=== PATIENT | female | born 1960 | race Caucasian/White ===

== ENCOUNTER 2016-11-18 00:53 | Emergency (ER) | payer SELFPAY ==
[~2016-11-18] VITALS: Ht 160 cm; Wt 64.0 kg
[~2016-11-18 00:53] MED LIST: ALBU8I INH; AZIT250T43 PO
[2016-11-18 01:15] VITALS: BP 161/73; PULSE 110; RESP 20; TEMP 98; O2SAT 94
--- NOTE | 2016-11-18 01:46 | PD ---
HPI Chief Complaint: Injury Time Seen by Provider: 01:29 Travel History International Travel<30 days: No Contact w/Intl Traveler<30days: No Traveled to known affect area: No History of Present Illness HPI 56 years old female complains of left foot left ankle pain. Patient states that she twisted her left foot and left ankle 2 weeks ago. Patient states that she had persistent pain and swelling to the area since then. Patient denies any new injury. Patient states that the pain is sharp pain localized to left on the left ankle. Patient denies any pain radiation. Patient states that the pain is worse with weightbearing. PFSH Past Medical History Diminished Hearing: No Gastrointestinal Disorders: Yes (Pt states she has colon problems.) GERD: Yes Genitourinary: Yes (FIBROIDS AND OVARIAN CYSTS) Reproductive: Yes (FIBROID TUMOR) Respiratory: Yes (Bronchitis ) Migraines: Yes Tetanus Vaccination: Unknown ?: Not Menopausal: Yes : 1 Miscarriage: 1 Ovarian Cysts: Yes (H/O, STATES MULTIPLE UTERINE FIBROIDTUMORS AND MD ADVISED HYSTERCT 12/30) Past Surgical History Surgical History: No Previous Surgery Body Medical Devices: SEASONAL ALLERGIES Gynecologic Surgery: Yes (D&C) Social History Alcohol Use: No Tobacco Use: No Substance Use: No Allergies-Medications (Allergen,Severity, Reaction): Coded Allergies: cephalexin (Unverified Allergy, Severe, HIVES, ITCHING, 11/08/16) doxycycline (Unverified Allergy, Severe, "TOXIC" REACTION, 11/08/16) minocycline (Unverified Allergy, Severe, "TOXIC" REACTION, 11/08/16) prednisone (Unverified Allergy, Severe, Rash, 11/08/16) tigecycline (Unverified Allergy, Severe, "TOXIC" REACTION, 11/08/16) Reported Meds & Prescriptions Reported Meds & Active Scripts Active Reported Ventolin Hfa (Albuterol Sulfate) 8 Gm Aero 2 Puff INH Q4 * SHAKE WELL BEFORE USE * 2 PUFFS EVERY 4 TO 6 HOURS NEEDED Azithromycin 250 Mg Tab 250 Mg PO DAILY Review of Systems General / Constitutional: No: Fever Eyes: No: Visual changes HENT: No: Headaches Cardiovascular: No: Chest Pain or Discomfort Respiratory: No: Shortness of Breath Gastrointestinal: No: Abdominal Pain Genitourinary: No: Dysuria Musculoskeletal: Positive: Edema, Pain Skin: No Rash Neurologic: No: Weakness Psychiatric: No: Depression Endocrine: No: Polydipsia Hematologic/Lymphatic: No: Easy Bruising Physical Exam Narrative GENERAL: Well-nourished, well-developed patient. SKIN: Focused skin assessment warm/dry. HEAD: Normocephalic. EYES: No scleral icterus. No injection or drainage. NECK: Supple, trachea midline. No JVD or lymphadenopathy. CARDIOVASCULAR: Regular rate and rhythm without murmurs, gallops, or rubs. RESPIRATORY: Breath sounds equal bilaterally. No accessory muscle use. GASTROINTESTINAL: Abdomen soft, non-tender, nondistended. MUSCULOSKELETAL: No cyanosis, or edema. BACK: Nontender without obvious deformity. No CVA tenderness. Patient has diffuse soft tissue swelling tenderness medial and lateral malleolus area of the ankle and dorsal aspect of the left foot. No redness no heat noted. Full range of motion of the toes. Data Data Last Documented VS Vital Signs Date Time Temp Pulse Resp B/P (MAP) Pulse Ox O2 Delivery O2 Flow Rate FiO2 11/18/16 01:15 98.0 110 20 161/73 (102) 94 Orders Orders Ankle, Complete ([id number]) (11/18/16 01:41) Foot, Complete ([id number]) (11/18/16 01:41) MDM Medical Decision Making Medical Screen Exam Complete: Yes Emergency Medical Condition: Yes Interpretation(s) 2:14 AM. X-ray ankle and foot show no acute bony injury. Soft tissue swelling. Differential Diagnosis Differential diagnosis including sprain, fracture, dislocation. Narrative Course 56 years old female with persistent pain swelling left ankle left foot. Status post injury. Santhosh wrap to the foot and ankle. Diagnosis Primary Impression: Left ankle sprain Qualified Codes: S93.402A - Sprain of unspecified ligament of left ankle, initial encounter Additional Impression: Sprain of left foot Qualified Codes: S93.602A - Unspecified sprain of left foot, initial encounter Patient Instructions: General Instructions Additional Instructions: Take medications as needed for pain. Follow-up with orthopedist. Med/Other Pt SpecificInfo: Prescription(s) given Scripts Meloxicam (Mobic) 15 Mg Tab 15 MG PO DAILY for Pain, #20 TAB 0 Refills Prov: Jc Smart MD 11/18/16 Disposition: 01 DISCHARGE HOME Condition: Stable Jc Smart MD Nov 18, 2016 01:46
--- NOTE | 2016-11-18 02:10 | RADRPT ---
EXAM DATE/TIME: 11/18/2016 01:55 [facility] COMPARISON: No previous studies available for comparison. INDICATIONS : Fell two weeks ago. MEDICAL HISTORY : None. SURGICAL HISTORY : None. ENCOUNTER: Initial ACUITY: 2 weeks PAIN SCORE: 10/10 LOCATION: Left ankle FINDINGS: Three view exam was performed of the left ankle. The bony structures are in normal alignment. No ev idence of fracture or dislocation. The ankle mortise is intact. No radiopaque foreign bodies are se en. Bony mineralization is normal. CONCLUSION: Unremarkable examination of the left ankle other than diffuse soft tissue swelling. Oliver Castaneda MD on November 18, 2016 at 2:08 Board Certified Radiologist. This report was verified electronically.
--- NOTE | 2016-11-18 02:11 | RADRPT ---
EXAM DATE/TIME: 11/18/2016 01:58 [facility] COMPARISON: No previous studies available for comparison. INDICATIONS : Fell two weeks ago. MEDICAL HISTORY : None. SURGICAL HISTORY : None. ENCOUNTER: Initial ACUITY: 2 weeks PAIN SCORE: 10/10 LOCATION: Left foot FINDINGS: Three view examination of the left foot demonstrates no soft tissue swelling, dislocation, or fractur e. The tarsal bones appear intact. The interphalangeal and metatarsophalangeal joints are intact. The calcaneus is intact. Bony mineralization is normal. CONCLUSION: Unremarkable examination of the left foot. Oliver Castaneda MD on November 18, 2016 at 2:09 Board Certified Radiologist. This report was verified electronically.
[2016-11-18] MEDS ORDERED: MOBI15TA PO (02:16)
[2016-11-18 03:30] VITALS: BP 143/70; PULSE 70; RESP 16
== END 2016-11-18 03:28 | disposition home or self-care (01) ==
LOC: NEPE 00:53
DX: S93.402A Sprain of unspecified ligament of left ankle, initial encounter (principal); S93.602A Unspecified sprain of left foot, initial encounter; X50.1XXA Overexertion from prolonged static or awkward postures, initial encounter; K21.9 Gastro-esophageal reflux disease without esophagitis
CPT/HCPCS: 73610; 73630; 99283

== ENCOUNTER 2017-03-13 03:17 | Emergency (ER) | payer SELFPAY ==
[~2017-03-13] VITALS: Ht 157.5 cm; Wt 65.0 kg
[~2017-03-13 03:17] MED LIST changes: +MOBI15TA PO
[2017-03-13 03:18] VITALS: BP 150/78; PULSE 112; RESP 18; TEMP 98.6; O2SAT 95
[2017-03-13] MEDS ORDERED: FUROSEMIDE 40 MG/4 ML VIAL IVP ONE (03:45)
[2017-03-13] MEDS ORDERED: SODIUM CHLORIDE 0.9% FLUSH 10 ML FLUSH IVF PRN (03:45)
[2017-03-13 03:47] VITALS: RESP 16; O2SAT 97
[2017-03-13 04:00] LABS: AUTOMATED NEUTROPHIL # 8.3 TH/MM3 (1.8-7.7); BASOPHIL # 0.1 TH/MM3 (0-0.2); BASOPHIL % 0.6 % (0.0-2.0); EOSINOPHIL # 0.7 TH/MM3 (0-0.4); EOSINOPHIL % 6.3 % (0.0-4.0); HEMATOCRIT 38.9 % (35.0-46.0); HEMOGLOBIN 12.7 GM/DL (11.6-15.3); LYMPH % 16.4 % (9.0-44.0); LYMPHOCYTE # 1.9 TH/MM3 (1.0-4.8); MEAN CELL VOLUME 84.2 FL (80.0-100.0); MEAN CORPUSCULAR HEMOGLOBIN 27.6 PG (27.0-34.0); MEAN CORPUSCULAR HGB CONC 32.7 % (32.0-36.0); MEAN PLATELET VOLUME 7.5 FL (7.0-11.0); MONO % 5.3 % (0.0-8.0); MONOCYTE # 0.6 TH/MM3 (0-0.9); NEUT % 71.4 % (16.0-70.0); PLATELET COUNT 313 TH/MM3 (150-450); RED BLOOD COUNT 4.62 MIL/MM3 (4.00-5.30); RED CELL DISTRIBUTION WIDTH 13.5 % (11.6-17.2); WHITE BLOOD COUNT 11.7 TH/MM3 (4.0-11.0)
--- NOTE | 2017-03-13 04:03 | PD ---
HPI Chief Complaint: Edema Time Seen by Provider: 03:39 Travel History International Travel<30 days: No Contact w/Intl Traveler<30days: No Traveled to known affect area: No History of Present Illness HPI 56 yo F complains of bilateral ankle pain and swelling gradually worsening over past two days of so. Pt has hx of L ankle pain and swelling. Since R ankle now involved and patient cannot ambulate 2/2 pain she called EMS for evaluation. Pt took Lortab earlier today and pain decreased significantly however patient awoke with markedly worsened pain. Pt reports decreased urination over past several days. Pt reports orthopnea and PRETTY. PFSH Past Medical History Diminished Hearing: No Gastrointestinal Disorders: Yes (Pt states she has colon problems.) GERD: Yes Genitourinary: Yes (FIBROIDS AND OVARIAN CYSTS) Reproductive: Yes (FIBROID TUMOR) Respiratory: Yes (Bronchitis ) Migraines: Yes Tetanus Vaccination: Unknown Influenza Vaccination: No Menopausal: Yes : 1 Miscarriage: 1 Ovarian Cysts: Yes (H/O, STATES MULTIPLE UTERINE FIBROIDTUMORS AND MD ADVISED HYSTERCT 12/30) Past Surgical History Body Medical Devices: SEASONAL ALLERGIES Gynecologic Surgery: Yes (D&C) Social History Alcohol Use: No Tobacco Use: No Substance Use: No Allergies-Medications (Allergen,Severity, Reaction): Coded Allergies: cephalexin (Unverified Allergy, Severe, HIVES, ITCHING, 03/13/17) doxycycline (Unverified Allergy, Severe, "TOXIC" REACTION, 03/13/17) minocycline (Unverified Allergy, Severe, "TOXIC" REACTION, 03/13/17) prednisone (Unverified Allergy, Severe, Rash, 03/13/17) tigecycline (Unverified Allergy, Severe, "TOXIC" REACTION, 03/13/17) Reported Meds & Prescriptions Reported Meds & Active Scripts Active No Active Prescriptions or Reported Medications Review of Systems Except as stated in HPI: all other systems reviewed are Neg General / Constitutional: No: Fever Musculoskeletal: Positive: Edema Physical Exam Narrative GENERAL: 56 yo F, WNWD, mild distress SKIN: Warm and dry. HEAD: Atraumatic. Normocephalic. EYES: Pupils equal and round. No scleral icterus. No injection or drainage. ENT: No nasal bleeding or discharge. Mucous membranes pink and moist. NECK: Trachea midline. No JVD. CARDIOVASCULAR: Regular rhythm. Normal rate. RESPIRATORY: Breath sounds intake bilaterally. No tachypnea. GASTROINTESTINAL: Abdomen soft, non-tender, nondistended. Hepatic and splenic margins not palpable. MUSCULOSKELETAL: Bilateral ankle edema, non-pitting, non-tender. 2+ DP bilaterally. No induration, warmth, erythema. NEUROLOGICAL: Awake and alert. No obvious cranial nerve deficits. Motor grossly within normal limits. Five out of 5 muscle strength in the arms and legs. Normal speech. PSYCHIATRIC: Appropriate mood and affect; insight and judgment normal. Data Data Last Documented VS Vital Signs Date Time Temp Pulse Resp B/P (MAP) Pulse Ox O2 Delivery O2 Flow Rate FiO2 03/13/17 03:47 97 Room Air 03/13/17 03:47 16 03/13/17 03:18 98.6 112 VS reviewed Orders Orders Complete Blood Count With Diff (03/13/17 03:44) Comprehensive Metabolic Panel (03/13/17 03:44) B-Type Natriuretic Peptide (03/13/17 03:44) Magnesium (Mg) (03/13/17 03:44) Iv Access Insert/Monitor (03/13/17 03:44) Ecg Monitoring (03/13/17 03:44) Oximetry (03/13/17 03:44) Oxygen Administration (03/13/17 03:44) Chest, Single Ap (03/13/17 03:44) Sodium Chloride 0.9% Flush (Ns Flush) (03/13/17 03:45) Furosemide Inj (Lasix Inj) (03/13/17 03:45) D-Dimer (03/13/17 04:40) Albuterol Hfa Inh (Proair Hfa Inh) (03/13/17 05:15) Us Leg Venous Doppler Bilat (03/13/17 ) Al-Mag Hy-Si 40-40-4 Mg/Ml Liq (Mag-Al P (03/13/17 05:45) Lidocaine 2% Viscous (Xylocaine 2% Visco (03/13/17 05:45) Labs Laboratory Tests Test 03/13/17 03:55 03/13/17 04:45 White Blood Count 11.7 TH/MM3 Red Blood Count 4.62 MIL/MM3 Hemoglobin 12.7 GM/DL Hematocrit 38.9 % Mean Corpuscular Volume 84.2 FL Mean Corpuscular Hemoglobin 27.6 PG Mean Corpuscular Hemoglobin Concent 32.7 % Red Cell Distribution Width 13.5 % Platelet Count 313 TH/MM3 Mean Platelet Volume 7.5 FL Neutrophils (%) (Auto) 71.4 % Lymphocytes (%) (Auto) 16.4 % Monocytes (%) (Auto) 5.3 % Eosinophils (%) (Auto) 6.3 % Basophils (%) (Auto) 0.6 % Neutrophils # (Auto) 8.3 TH/MM3 Lymphocytes # (Auto) 1.9 TH/MM3 Monocytes # (Auto) 0.6 TH/MM3 Eosinophils # (Auto) 0.7 TH/MM3 Basophils # (Auto) 0.1 TH/MM3 CBC Comment DIFF FINAL Differential Comment Blood Urea Nitrogen 6 MG/DL Creatinine 0.59 MG/DL Random Glucose 97 MG/DL Total Protein 7.3 GM/DL Albumin 3.2 GM/DL Calcium Level 8.7 MG/DL Magnesium Level 1.9 MG/DL Alkaline Phosphatase 117 U/L Aspartate Amino Transf (AST/SGOT) 13 U/L Alanine Aminotransferase (ALT/SGPT) 15 U/L Total Bilirubin 0.8 MG/DL Sodium Level 140 MEQ/L Potassium Level 3.6 MEQ/L Chloride Level 106 MEQ/L Carbon Dioxide Level 24.2 MEQ/L Anion Gap 10 MEQ/L Estimat Glomerular Filtration Rate 105 ML/MIN B-Type Natriuretic Peptide 56 PG/ML D-Dimer Quantitative (PE/DVT) 0.90 MG/L [facility] Medical Decision Making Medical Screen Exam Complete: Yes Emergency Medical Condition: Yes Medical Record Reviewed: Yes Differential Diagnosis CHF, pna, venous insufficiency, renal failure, bronchitis, DVT Narrative Course CBC & BMP Diagram 03/13/17 03:55 Total Protein 7.3, Albumin 3.2 L, Calcium Level 8.7, Magnesium Level 1.9, Alkaline Phosphatase 117, Aspartate Amino Transf (AST/SGOT) 13 L, Alanine Aminotransferase (ALT/SGPT) 15, Total Bilirubin 0.8 Last 24 hours Impressions Chest X-Ray 03/13/17 3004 Signed Impressions: Service Date/Time: Monday, March 13, 2017 04:07 - CONCLUSION: Normal examination. Brooks Dunn MD Work up is essentially unremarkable. Pt reiterates her concern for pain and swelling. DDimer added on given low probability for DVT DDimer is 0.9 Lower extremity Doppler study added Patient refused the lower extremity Doppler study on account of the concern for cost. We discussed the necessity of it especially with an elevated d-dimer. The patient stated she wasn't comfortable with it and said she would establish primary care follow-up. Patient understands that by leaving she places herself at increased risk for DVT , PE, potential complication related there and not limited to respiratory arrest , cardiopulmonary arrest and potentially even . Patient has verbalized understanding she can return at any time. The patient is also verbalized intent follow-up with local clinic. Information provided. Diagnosis Primary Impression: Left against medical advice Scripts No Active Prescriptions or Reported Meds Disposition: 07 AGAINST MEDICAL ADVICE Condition: Stable Kwaku White MD Mar 13, 2017 04:03
[2017-03-13 04:21] LABS: ALBUMIN 3.2 GM/DL (3.4-5.0); ALT (GPT) 15 U/L (10-53); AST (GOT) 13 U/L (15-37); BICARBONATE 24.2 MEQ/L (21.0-32.0); BLOOD UREA NITROGEN 6 MG/DL (7-18); CALCIUM 8.7 MG/DL (8.5-10.1); CHLORIDE 106 MEQ/L (98-107); CREATININE 0.59 MG/DL (0.50-1.00); GLOMERULAR FILTRATION RATE 105 ML/MIN (>89); GLUCOSE,RANDOM 97 MG/DL (74-106); MAGNESIUM 1.9 MG/DL (1.5-2.5); SODIUM (NA) 140 MEQ/L (136-145)
[2017-03-13 04:23] LABS: ALKALINE PHOSPHATASE 117 U/L (45-117); TOTAL BILIRUBIN ADULT 0.8 MG/DL (0.2-1.0); TOTAL PROTEIN 7.3 GM/DL (6.4-8.2)
--- NOTE | 2017-03-13 04:37 | RADRPT ---
EXAM DATE/TIME: 03/13/2017 04:07 [facility] COMPARISON: CHEST SINGLE AP, July 05, 2015, 1:25. INDICATIONS : Cough for 2 weeks. MEDICAL HISTORY : None. SURGICAL HISTORY : None. ENCOUNTER: Initial ACUITY: 2 weeks PAIN SCORE: 0/10 LOCATION: Bilateral chest FINDINGS: A single view of the chest demonstrates the lungs to be symmetrically aerated without evidence of mas s, infiltrate or effusion. The cardiomediastinal contours are unremarkable. Osseous structures are intact. CONCLUSION: Normal examination. Brooks Dunn MD on March 13, 2017 at 4:35 Board Certified Radiologist. This report was verified electronically.
[2017-03-13] MEDS ORDERED: ALBUTEROL SULFATE 90 MCG/ACT HFA 8 GM INHALER INH ONE (05:15)
[2017-03-13] MEDS ORDERED: ALUMINUM/MAGNESIUM/SIMETH 30 ML CUP PO ONE (05:45)
[2017-03-13] MEDS ORDERED: LIDOCAINE VISCOUS 2% SOLN 15 ML UDC PO ONE (05:45)
== END 2017-03-13 06:39 | disposition left against medical advice (07) ==
LOC: NEPC 03:17
DX: M25.571 Pain in right ankle and joints of right foot (principal); M25.572 Pain in left ankle and joints of left foot; R06.01 Orthopnea; R05 Cough
CPT/HCPCS: 71010; 80053; 83735; 83880; 85025; 85379; 96374; 99285; J1940

== ENCOUNTER 2017-05-14 19:03 | Inpatient (IN) | payer SELFPAY ==
[~2017-05-14] VITALS: Ht 157.5 cm; Wt 72.9 kg
[2017-05-14 19:31] VITALS: BP 141/68; PULSE 115; RESP 16; TEMP 98.7; O2SAT 95
--- NOTE | 2017-05-14 20:40 | PD ---
HPI Chief Complaint: Psychiatric Symptoms Time Seen by Provider: 20:27 Travel History International Travel<30 days: No Contact w/Intl Traveler<30days: No Traveled to known affect area: No History of Present Illness HPI The patient is a 56 year old female who presents to the [facility] emergency department with a history of being brought in under a Khalil act due to concerns about her ability to care for herself. According to the Khalil act the patient was staying in a residence with trash, urine, and feces all over the furniture and floor. When the patient is questioned regarding what brings her to the emergency department, the patient reports that she "is dehydrated." She reports that her h has been refusing to feed her and also not giving her any liquids other than beer. She reports that she normally does not drink alcohol. She denies having any history of psychiatric disorder. She denies having any suicidal or homicidal ideations. On review of systems otherwise, the patient denies having any recent known fevers, worsening cough or congestion,neck pain, chest pain, shortness of breath, urinary symptoms, or neurologic symptoms. The patient reports that she has had constipation. She reports that she has not been able to move her bowels that she has not been eating. She reports that she has lower abdominal pain associated with this. COUNTS INCLUDE 234 BEDS AT THE [facility] Past Medical History Narrative Medical The patient's past medical history is significant for chronic bronchitis, history of COPD, history of fibroids and ovarian cysts, allergic rhinitis. Hx Anticoagulant Therapy: No Cardiovascular Problems: No Chemotherapy: No Cerebrovascular Accident: No Diabetes: No Diminished Hearing: No Gastrointestinal Disorders: Yes (Pt states she has colon problems.) GERD: Yes Genitourinary: Yes (FIBROIDS AND OVARIAN CYSTS) Reproductive: Yes (FIBROID TUMOR) Respiratory: Yes (CHRONIC BRONCHITIS) Migraines: Yes ?: Not Menopausal: Yes : 1 Miscarriage: 1 Ovarian Cysts: Yes (H/O, STATES MULTIPLE UTERINE FIBROIDTUMORS AND MD ADVISED HYSTERCT 12/30) Past Surgical History Narrative Surgical The patient's past surgical history is significant for dilation and curettage. Body Medical Devices: SEASONAL ALLERGIES Gynecologic Surgery: Yes (D&C) Hysterectomy: No Social History Alcohol Use: No Tobacco Use: No Substance Use: No Allergies-Medications (Allergen,Severity, Reaction): Coded Allergies: cephalexin (Unverified Allergy, Severe, HIVES, ITCHING, 03/13/17) doxycycline (Unverified Allergy, Severe, "TOXIC" REACTION, 03/13/17) minocycline (Unverified Allergy, Severe, "TOXIC" REACTION, 03/13/17) prednisone (Unverified Allergy, Severe, Rash, 03/13/17) tigecycline (Unverified Allergy, Severe, "TOXIC" REACTION, 03/13/17) Reported Meds & Prescriptions Reported Meds & Active Scripts Active No Active Prescriptions or Reported Medications Review of Systems Except as stated in HPI: all other systems reviewed are Neg General / Constitutional: No: Fever Eyes: No: Visual changes HENT: No: Headaches Cardiovascular: No: Chest Pain or Discomfort Respiratory: No: Shortness of Breath Gastrointestinal: Positive: Abdominal Pain, Constipation, Changes in Bowel Habits, No: Nausea, Vomiting, Diarrhea, Hematochezia, Indigestion, Loss of Appetite Genitourinary: No: Dysuria Musculoskeletal: No: Pain Skin: No Rash Neurologic: Positive: Weakness (Generalized weakness), No: Focal Abnormalities , Change in Mentation, Slurred Speech, Sensory Disturbance Psychiatric: Positive: Disorder of Thought, No: Depression, Suicidal Ideations , Homicidal Ideation Endocrine: No: Polydipsia Hematologic/Lymphatic: No: Easy Bruising Physical Exam Narrative General: The patient is a well-developed well-nourished female in no acute distress. Head and Neck exam: Head is normocephalic atraumatic. Eyes: EOMI, pupils are equal round and reactive to light. Nose: Midline septum with pink mucous membranes Mouth: Dentition unremarkable. Tachy mucus membranes. Posterior oropharynx is not erythematous. No tonsillar hypertrophy. Uvula midline. Airway patent. Neck: No palpable lymphadenopathy. No nuchal rigidity. No thyromegaly. Cardiovascular: Sinus tachycardia in the low 100s without murmurs, gallops, or rubs. No pulse deficit to the extremities on simultaneous auscultation and palpation of her radial artery. Lungs: Clear to auscultation bilaterally. No wheezes, rhonchi, or rales. Abdomen: Soft, with tenderness on palpation of bilateral lower quadrants of the abdomen, worse on the left compared to the right. Normal bowel sounds are audible. No tenderness specifically on palpation of her McBurney's point. Negative Abdalla sign. No guarding, rebound, or rigidity. Extremities: No clubbing, cyanosis, or edema. 2+ pulses in all 4 extremities. No calf tenderness on palpation. Back: No costovertebral angle tenderness to palpation. Neurologic Exam: Grossly nonfocal. Skin Exam: No rash noted. Intact skin that is warm and dry. Data Data Last Documented VS Vital Signs Date Time Temp Pulse Resp B/P (MAP) Pulse Ox O2 Delivery O2 Flow Rate FiO2 05/14/17 20:47 96 Room Air 05/14/17 20:42 108 19 05/14/17 19:31 98.7 Orders Orders Electrocardiogram (05/14/17 20:28) Complete Blood Count With Diff (05/14/17 20:28) Comprehensive Metabolic Panel (05/14/17 20:28) Prothrombin Time / Inr (Pt) (05/14/17 20:28) Act Partial Throm Time (Ptt) (05/14/17 20:28) Lipase (05/14/17 20:28) Urinalysis - C+S If Indicated (05/14/17 20:28) Magnesium (Mg) (05/14/17 20:28) Thyroid Stimulating Hormone (05/14/17 20:28) Chest, Single Ap (05/14/17 20:28) Iv Access Insert/Monitor (05/14/17 20:28) Ecg Monitoring (05/14/17 20:28) Oximetry (05/14/17 20:28) Psych Screen (05/14/17 20:28) Drug Screen, Random Urine (05/14/17 20:28) Alcohol (Ethanol) (05/14/17 20:28) Salicylates (Aspirin) (05/14/17 20:28) Tylenol (Acetaminophen) (05/14/17 20:28) Sodium Chlor 0.9% 1000 Ml Inj (Ns 1000 M (05/14/17 21:15) Ct Abd/Pel W Iv Contrast(Rout) (05/14/17 21:18) Urine Culture (05/14/17 21:00) Potassium Chloride (Kcl) (05/14/17 22:30) Sulfamet-Trimeth Ds 800-160 Mg (Bactrim (05/14/17 22:30) Iohexol 350 Inj (Omnipaque 350 Inj) (05/14/17 22:51) Labs Laboratory Tests Test 05/14/17 21:00 05/14/17 21:45 White Blood Count 11.5 TH/MM3 Red Blood Count 5.16 MIL/MM3 Hemoglobin 14.3 GM/DL Hematocrit 42.4 % Mean Corpuscular Volume 82.2 FL Mean Corpuscular Hemoglobin 27.8 PG Mean Corpuscular Hemoglobin Concent 33.8 % Red Cell Distribution Width 14.2 % Platelet Count 320 TH/MM3 Mean Platelet Volume 7.6 FL Neutrophils (%) (Auto) 76.8 % Lymphocytes (%) (Auto) 16.3 % Monocytes (%) (Auto) 5.7 % Eosinophils (%) (Auto) 0.5 % Basophils (%) (Auto) 0.7 % Neutrophils # (Auto) 8.8 TH/MM3 Lymphocytes # (Auto) 1.9 TH/MM3 Monocytes # (Auto) 0.7 TH/MM3 Eosinophils # (Auto) 0.1 TH/MM3 Basophils # (Auto) 0.1 TH/MM3 CBC Comment DIFF FINAL Differential Comment Urine Color YELLOW Urine Turbidity HAZY Urine pH 5.0 Urine Specific [place] 1.014 Urine Protein TRACE mg/dL Urine Glucose (UA) NEG mg/dL Urine Ketones 40 mg/dL Urine Occult Blood TRACE Urine Nitrite NEG Urine Bilirubin NEG Urine Urobilinogen LESS THAN 2.0 MG/DL Urine Leukocyte Esterase LARGE Urine RBC 1 /hpf Urine WBC 44 /hpf Urine Squamous Epithelial Cells 3 /hpf Urine Transitional Epithelial Cells 1 /hpf Urine Amorphous Sediment RARE Urine Bacteria OCC /hpf Urine Hyaline Casts 6 /lpf Urine Mucus FEW /lpf Microscopic Urinalysis Comment CULTURE INDICATED Blood Urea Nitrogen 7 MG/DL Creatinine 0.73 MG/DL Random Glucose 101 MG/DL Total Protein 8.1 GM/DL Albumin 3.9 GM/DL Calcium Level 9.2 MG/DL Magnesium Level 2.1 MG/DL Alkaline Phosphatase 124 U/L Aspartate Amino Transf (AST/SGOT) 23 U/L Alanine Aminotransferase (ALT/SGPT) 21 U/L Total Bilirubin 0.6 MG/DL Sodium Level 137 MEQ/L Potassium Level 3.4 MEQ/L Chloride Level 100 MEQ/L Carbon Dioxide Level 22.3 MEQ/L Anion Gap 15 MEQ/L Estimat Glomerular Filtration Rate 82 ML/MIN Lipase 157 U/L Thyroid Stimulating Hormone 3rd Gen 0.899 uIU/ML Salicylates Level LESS THAN 1.7 MG/DL Urine Opiates Screen NEG Acetaminophen Level LESS THAN 2.0 MCG/ML Urine Barbiturates Screen NEG Urine Amphetamines Screen NEG Urine Benzodiazepines Screen NEG Urine Cocaine Screen NEG Urine Cannabinoids Screen NEG Ethyl Alcohol Level 32 MG/DL Prothrombin Time 10.7 SEC Prothromb Time International Ratio 1.1 RATIO Activated Partial Thromboplast Time 28.4 SEC MDM Medical Decision Making Medical Screen Exam Complete: Yes Emergency Medical Condition: Yes Medical Record Reviewed: Yes Interpretation(s) Last Impressions Chest X-Ray 05/14/172027 Signed Impressions: Service Date/Time: Sunday, May 14, 2017 20:39 - CONCLUSION: Underinflated examination with atelectasis at both lung bases. Otherwise, no acute finding is identified. Brooks Valentin MD Differential Diagnosis Acute psychosis, versus substance-induced mood disorder, versus encephalopathy. Narrative Course During the course of the patient's emergency department visit, the patient's history, examination, and differential diagnosis were reviewed with the patient. The patient was placed on a front desk monitor with oximetry and frequent blood pressure monitoring. The patient had IV access obtained and blood work sent for analysis. The patient had an EKG done on arrival that shows a sinus tach cardia rate of 108, QRS duration is 81 ms, QTC [address] segment elevation, T waves are inverted in V1, V2, V3, V4. The patient was initially provided normal saline 1 L IV fluid bolus The patient's laboratory studies were reviewed and remarkable for a white count of 11.5, hemoglobin 14.3, platelets 320 with 76.8 neutrophils, CMP is remarkable for potassium of 3.4 which was supplemented orally, GFR 82, alk phos 124, lipase 157, TSH 0.899, urine drug screen is negative, salicylate less than 1.7, acetaminophen less than 2, alcohol level 32, urinalysis shows 40 ketones, trace occult blood, large leukocyte esterase, 1 RBC, WBC 44, occasional bacteria , culture indicated. The patient was given Bactrim DS 1 p.o. 1. Radiology studies were reviewed and remarkable for a chest x-ray that shows atelectasis of the bases with underinflation, no other acute abnormality. CT scan of the abdomen and pelvis showed no acute abnormality. The patient has been medically cleared for evaluation by the psychiatric screener and psychiatrist under a Khalil act. Diagnosis Primary Impression: Acute psychosis Additional Impression: Urinary tract infection Qualified Codes: N30.00 - Acute cystitis without hematuria Med/Other Pt SpecificInfo: Prescription(s) given Scripts Sulfamethoxazole-Trimethoprim (Bactrim DS) 800-160 Mg Tab 1 TAB PO BID for Infection, #14 TAB 0 Refills Prov: Yoly Lagos MD 05/14/17 Yoly Lagos MD May 14, 2017 20:40
[2017-05-14 20:42] VITALS: BP 124/61; PULSE 108; RESP 19; O2SAT 96
[2017-05-14 20:47] VITALS: O2SAT 96
--- NOTE | 2017-05-14 20:48 | RADRPT ---
EXAM DATE/TIME: 05/14/2017 20:39 [facility] COMPARISON: CHEST SINGLE AP, March 13, 2017, 4:07. INDICATIONS : Cough MEDICAL HISTORY : None. SURGICAL HISTORY : None. ENCOUNTER: Initial ACUITY: 1 day PAIN SCORE: 0/10 LOCATION: Bilateral chest FINDINGS: Portable AP view of the chest demonstrates a normal-sized cardiac silhouette. Lungs are underinflated with atelectasis at the lung bases. No pleural effusion or pneumothorax is identified. The bones and soft tissues demonstrate no acute finding. CONCLUSION: Underinflated examination with atelectasis at both lung bases. Otherwise, no acute finding is identif ied. Brooks Valentin MD on May 14, 2017 at 20:46 Board Certified Radiologist. This report was verified electronically.
[2017-05-14] MEDS ORDERED: SODIUM CHLOR 0.9% 1000 ML INJ 1,000 ML IV ONE (21:15)
[2017-05-14 21:21] LABS: AUTOMATED NEUTROPHIL # 8.8 TH/MM3 (1.8-7.7); BASOPHIL # 0.1 TH/MM3 (0-0.2); BASOPHIL % 0.7 % (0.0-2.0); EOSINOPHIL # 0.1 TH/MM3 (0-0.4); EOSINOPHIL % 0.5 % (0.0-4.0); HEMATOCRIT 42.4 % (35.0-46.0); HEMOGLOBIN 14.3 GM/DL (11.6-15.3); LYMPH % 16.3 % (9.0-44.0); LYMPHOCYTE # 1.9 TH/MM3 (1.0-4.8); MEAN CELL VOLUME 82.2 FL (80.0-100.0); MEAN CORPUSCULAR HEMOGLOBIN 27.8 PG (27.0-34.0); MEAN CORPUSCULAR HGB CONC 33.8 % (32.0-36.0); MEAN PLATELET VOLUME 7.6 FL (7.0-11.0); MONO % 5.7 % (0.0-8.0); MONOCYTE # 0.7 TH/MM3 (0-0.9); NEUT % 76.8 % (16.0-70.0); PLATELET COUNT 320 TH/MM3 (150-450); RED BLOOD COUNT 5.16 MIL/MM3 (4.00-5.30); RED CELL DISTRIBUTION WIDTH 14.2 % (11.6-17.2); WHITE BLOOD COUNT 11.5 TH/MM3 (4.0-11.0)
[2017-05-14 21:50] LABS: ALT (GPT) 21 U/L (10-53)
[2017-05-14 21:52] LABS: AMORPHOUS SEDIMENT, URINE RARE; BACTERIA, URINE OCC /hpf; BILIRUBIN, URINE NEG (NEG); BLOOD, URINE TRACE (NEG); GLUCOSE,URINE NEG (NEG); HYALINE CAST, URINE 6 /lpf (RARE); KETONE, URINE 40 mg/dL (NEG); MUCUS URINE FEW /lpf (OCC); NITRITE,URINE NEG (NEG); SQUAMOUS EPITHELIAL CELL URINE 3 /hpf (0-5); TRANSITIONAL EPI CELLS, URINE 1 /hpf; URINE COLOR YELLOW (YELLW/STRAW); URINE LEUKOCYTE ESTERASE LARGE (NEG)
[2017-05-14 21:54] LABS: ACETAMINOPHEN LESS THAN 2.0 MCG/ML (10.0-30.0); ALBUMIN 3.9 GM/DL (3.4-5.0); ALKALINE PHOSPHATASE 124 U/L (45-117); AST (GOT) 23 U/L (15-37); BICARBONATE 22.3 MEQ/L (21.0-32.0); BLOOD UREA NITROGEN 7 MG/DL (7-18); CALCIUM 9.2 MG/DL (8.5-10.1); CHLORIDE 100 MEQ/L (98-107); CREATININE 0.73 MG/DL (0.50-1.00); GLOMERULAR FILTRATION RATE 82 ML/MIN (>89); GLUCOSE,RANDOM 101 MG/DL (74-106); MAGNESIUM 2.1 MG/DL (1.5-2.5); SODIUM (NA) 137 MEQ/L (136-145); TOTAL BILIRUBIN ADULT 0.6 MG/DL (0.2-1.0); TOTAL PROTEIN 8.1 GM/DL (6.4-8.2)
[2017-05-14] MEDS ORDERED: POTASSIUM CHLORIDE 20 MEQ CONTROLLED RELEASE TAB PO ONE (22:30)
[2017-05-14] MEDS ORDERED: SULFAMETHOXAZOLE-TRIMETHOPRIM DS 800-160 MG TAB PO ONE (22:30)
[2017-05-14 22:38] LABS: INTERNATIONAL NORMALIZED RATIO 1.1 RATIO; PROTHROMBIN TIME - PATIENT 10.7 SEC (9.8-11.6)
[2017-05-14] MEDS ORDERED: IOHEXOL 350 MG/ML 10 ML VIAL (for RAD DIAG) IVCONTRAST ONE (22:51)
--- NOTE | 2017-05-14 23:03 | RADRPT ---
EXAM DATE/TIME: 05/14/2017 22:48 [facility] COMPARISON: No previous studies available for comparison. INDICATIONS : Abdominal pain and nausea; possible diverticulitis. IV CONTRAST: 97 cc Omnipaque 350 (iohexol) IV ORAL CONTRAST: No oral contrast ingested. RADIATION DOSE: 15.71 CTDIvol (mGy) MEDICAL HISTORY : Chronic bronchitis, uterine fibroids, ovarian cysts SURGICAL HISTORY : None. ENCOUNTER: Initial ACUITY: 1 day PAIN SCALE: 6/10 LOCATION: abdomen TECHNIQUE: Volumetric scanning of the abdomen and pelvis was performed. Using automated exposure control and ad justment of the mA and/or kV according to patient size, radiation dose was kept as low as reasonably achievable to obtain optimal diagnostic quality images. DICOM format image data is available electro nically for review and comparison. FINDINGS: LOWER LUNGS: The visualized lower lungs are clear. LIVER: Homogeneous density without lesion. There is no dilation of the biliary tree. No calcified gallston es. SPLEEN: Normal size without lesion. PANCREAS: Within normal limits. KIDNEYS: Normal in size and shape. There is no mass, stone or hydronephrosis. There is an 11 mm low-density l esion in the right mid kidney with density measurements consistent with a cyst. ADRENAL GLANDS: Within normal limits. VASCULAR: There is no aortic aneurysm. There is mild atherosclerotic disease. BOWEL/MESENTERY: The stomach, small bowel, and colon demonstrate no acute abnormality. There is no free intraperitone al air or fluid. Mild sigmoid diverticulosis is present. There is a small hiatal hernia. ABDOMINAL WALL: Within normal limits. RETROPERITONEUM: There is no lymphadenopathy. BLADDER: No wall thickening or mass. REPRODUCTIVE: There is a 15 mm cyst in the right ovary. Uterus contains a hypoenhancing area in the anterior fundus measuring 18 mm. INGUINAL: There is no lymphadenopathy or hernia. MUSCULOSKELETAL: There mild degenerative changes of the lumbar spine. CONCLUSION: 1. No acute finding is identified within the abdomen or pelvis. There are no imaging findings to noelle anahy acute diverticulitis. 2. There is a 15 mm cyst in the right ovary. If the patient is post menopausal, recommend 6 month fol low up imaging to confirm stability. 3. Nonacute findings include small hiatal hernia and 18 mm hypoenhancing area in the uterine fundus l ikely representing a fibroid. Brooks Valentin MD on May 14, 2017 at 22:56 Board Certified Radiologist. This report was verified electronically.
[2017-05-14] MEDS ORDERED: BACT800T5 PO (23:09)
[2017-05-15 02:40] VITALS: BP 139/93; PULSE 98; RESP 18; O2SAT 98
[2017-05-15] MEDS ORDERED: diphenhydrAMINE HCL 50 MG CAP PO PRN (02:45)
[2017-05-15] MEDS ORDERED: MAGNESIUM HYDROXIDE SUSP 30 ML CUP PO PRN (02:45)
[2017-05-15] MEDS ORDERED: ALUMINUM/MAGNESIUM/SIMETH 30 ML CUP PO PRN (02:45)
[2017-05-15] MEDS ORDERED: diphenhydrAMINE HCL 50 MG/ML VIAL IM PRN (02:45)
[2017-05-15] MEDS ORDERED: hydrOXYzine HCL 50 MG TAB PO PRN (02:45)
[2017-05-15 05:25] VITALS: BP 159/82; PULSE 111; RESP 18; TEMP 98.7; O2SAT 97
[2017-05-15] MEDS: NICOTINE 21 MG/24 HR PATCH T-DERMAL SCH (09:00)
[2017-05-15] MEDS ORDERED: SULFAMETHOXAZOLE-TRIMETHOPRIM DS 800-160 MG TAB PO SCH ×2 (09:00)
--- NOTE | 2017-05-15 10:02 | PD.CONS ---
HPI Service [facility] Hospitalists Consult Requested By Dr. Brooks Chaudhry Reason for Consult Help with UTI and medical management Primary Care Physician No Primary Care Physician Diagnoses: History of Present Illness Patient is a 56-year-old female resident to [facility] emergency department initially with a history of being brought in under [facility] act due to inability to care for herself. Per the [employer] act the patient was staying in a residence with trash, urine, and feces all over the furniture and floor. Patient states that she is here because she is dehydrated.. Per chart review her is been refusing to give the patient any other liquids other than beer. Patient reports that she does not drink alcohol. Denies any psychiatric history denies any suicidal or homicidal ideation review of systems is limited. Patient has had poor oral intake and therefore not having good bowel movements. Review of Systems ROS Limitations: Altered Mental Status Constitutional: DENIES: Diaphoretic episodes, Fatigue, Fever, Weight gain, Weight loss, Chills, Dizziness, Change in appetite Endocrine: DENIES: Abnorml menstrual pattern, Heat/cold intolerance Eyes: DENIES: Blurred vision, Diplopia, Eye inflammation, Eye pain Ears, nose, mouth, throat: DENIES: Tinnitus, Hearing loss, Vertigo Respiratory: DENIES: Apneas, Cough, Snoring, Wheezing, Hemoptysis Cardiovascular: DENIES: Chest pain, Palpitations, Syncope, Dyspnea on Exertion Gastrointestinal: COMPLAINS OF: Constipation, DENIES: Abdominal pain, Black stools, Bloody stools Genitourinary: DENIES: Abnormal vaginal bleeding, Dysmenorrhea, Dyspareunia Musculoskeletal: DENIES: Joint pain, Muscle aches, Stiffness, Joint Swelling Integumentary: DENIES: Abnormal pigmentation, Pruritus, Rash Hematologic/lymphatic: DENIES: Bruising, Lymphadenopathy Immunologic/allergic: DENIES: Eczema, Urticaria Neurologic: DENIES: Abnormal gait, Headache, Localized weakness, Paresthesias, Seizures Psychiatric: COMPLAINS OF: Anxiety, Confusion, Mood changes, Depression, Agitation Except as stated in HPI: all other systems reviewed are Neg Past Family Social History Allergies: Coded Allergies: cephalexin (Unverified Allergy, Severe, HIVES, ITCHING, 03/13/17) doxycycline (Unverified Allergy, Severe, "TOXIC" REACTION, 03/13/17) minocycline (Unverified Allergy, Severe, "TOXIC" REACTION, 03/13/17) prednisone (Unverified Allergy, Severe, Rash, 03/13/17) tigecycline (Unverified Allergy, Severe, "TOXIC" REACTION, 03/13/17) Past Medical History Chronic bronchitis History of COPD History of fibroids and ovarian cysts Allergic rhinitis Seasonal allergies Past Surgical History Dilatation and curettage Reported Medications Reported Meds & Active Scripts Active Bactrim DS (Sulfamethoxazole-Trimethoprim) 800-160 Mg Tab 1 Tab PO BID Active Ordered Medications Current Medications Sodium Chloride 1,000 ml @ 1,000 mls/hr Q1H ONCE IV Last administered on at 21:26; Start 05/14/17 at 21:15; Stop 05/14/17 at 22:14; Status DC Potassium Chloride (KCl) 20 meq ONCE ONCE PO Last administered on 05/14/17at 22 :45; Start 05/14/17 at 22:30; Stop 05/14/17 at 22:31; Status DC Trimethoprim/ Sulfamethoxazole (Bactrim Ds 800-160 Mg) 1 tab ONCE ONCE PO ; Start 05/14/17 at 22:30; Stop 05/14/17 at 22:31; Status DC Iohexol (Omnipaque 350 Inj) 97 ml STK-MED ONCE IVCONTRAST Last administered on 05/14/17at 22:51; Start 05/14/17 at 22:51; Stop 05/14/17 at 22:52; Status DC Hydroxyzine HCl (Atarax) 50 mg Q6H PRN PO ANXIETY; Start 05/15/17 at 02:45 Diphenhydramine HCl (Benadryl) 50 mg Q6H PRN PO MILD ANXIETY, EPS; Start at 02:45 Diphenhydramine HCl (Benadryl Inj) 50 mg Q6H PRN IM MILD ANXIETY, EPS; Start at 02:45 Acetaminophen (Tylenol) 650 mg Q4H PRN PO Pain 1-5 or Temp >101F; Start at 02:45 Magnesium Hydroxide (Milk Of Magnesia Liq) 30 ml DAILY PRN PO CONSTIPATION; Start 05/15/17 at 02:45 Al Hydrox/Mg Hydrox/Simethicone (Mag-Al Plus Susp Liq) 30 ml Q6H PRN PO DYSPEPSIA; Start 05/15/17 at 02:45 Nicotine (Habitrol 21 Mg Patch.24 Hr) 1 patch DAILY T-DERMAL ; Start 05/15/17 at 09:00 Miscellaneous Information 1 HS T-DERMAL ; Start 05/15/17 at 21:00 Trimethoprim/ Sulfamethoxazole (Bactrim Ds 800-160 Mg) 1 tab BID PO ; Start at 09:00; Stop 05/21/17 at 21:01 Trimethoprim/ Sulfamethoxazole (Bactrim Ds 800-160 Mg) 1 tab BID PO ; Start at 09:00 Family History Bipolar from the family history Social History Positive alcohol denies any tobacco or substance abuse currently Physical Exam Vital Signs Vital Signs Date Time Temp Pulse Resp B/P (MAP) Pulse Ox O2 Delivery O2 Flow Rate FiO2 05/15/17 05:25 98.7 111 18 159/82 (107) 97 05/15/17 02:42 05/15/17 02:40 98 18 139/93 (108) 98 Room Air 05/14/17 20:47 96 Room Air 05/14/17 20:42 108 19 124/61 (82) 96 Room Air 05/14/17 19:31 98.7 115 16 141/68 (92) 95 Room Air Physical Exam GENERAL: This is a well-nourished, well-developed patient, in no apparent distress. SKIN: No rashes, ecchymoses or lesions. Cool and dry. HEAD: Atraumatic. Normocephalic. No temporal or scalp tenderness. EYES: Pupils equal round and reactive. Extraocular motions intact. No scleral icterus. No injection or drainage. ENT: Nose without bleeding, purulent drainage or septal hematoma. Throat without erythema, tonsillar hypertrophy or exudate. Uvula midline. Airway patent. Tongue is midline NECK: Trachea midline. No JVD or lymphadenopathy. Supple, nontender, no meningeal signs. CARDIOVASCULAR: Regular rate and rhythm without murmurs, gallops, or rubs. S1 and S2 no S3 or S4 RESPIRATORY: Clear to auscultation. Breath sounds equal bilaterally. No wheezes , rales, or rhonchi. GASTROINTESTINAL: Abdomen soft, non-tender, nondistended. No hepato-splenomegaly , or palpable masses. No guarding. MUSCULOSKELETAL: Extremities without clubbing, cyanosis, or edema. No joint tenderness, effusion, or edema noted. No calf tenderness. Negative Homans sign bilaterally. NEUROLOGICAL: Awake and alert. Cranial nerves II through XII intact. Motor and sensory grossly within normal limits. 4 out of 5 muscle strength in all muscle groups. Normal speech. Insight and judgment is limited, mood and behavior is abnormal Laboratory Laboratory Tests Test 05/14/17 21:00 05/14/17 21:45 White Blood Count 11.5 Red Blood Count 5.16 Hemoglobin 14.3 Hematocrit 42.4 Mean Corpuscular Volume 82.2 Mean Corpuscular Hemoglobin 27.8 Mean Corpuscular Hemoglobin Concent 33.8 Red Cell Distribution Width 14.2 Platelet Count 320 Mean Platelet Volume 7.6 Neutrophils (%) (Auto) 76.8 Lymphocytes (%) (Auto) 16.3 Monocytes (%) (Auto) 5.7 Eosinophils (%) (Auto) 0.5 Basophils (%) (Auto) 0.7 Neutrophils # (Auto) 8.8 Lymphocytes # (Auto) 1.9 Monocytes # (Auto) 0.7 Eosinophils # (Auto) 0.1 Basophils # (Auto) 0.1 CBC Comment DIFF FINAL Differential Comment Urine Color YELLOW Urine Turbidity HAZY Urine pH 5.0 Urine Specific [place] 1.014 Urine Protein TRACE Urine Glucose (UA) NEG Urine Ketones 40 Urine Occult Blood TRACE Urine Nitrite NEG Urine Bilirubin NEG Urine Urobilinogen LESS THAN 2.0 Urine Leukocyte Esterase LARGE Urine RBC 1 Urine WBC 44 Urine Squamous Epithelial Cells 3 Urine Transitional Epithelial Cells 1 Urine Amorphous Sediment RARE Urine Bacteria OCC Urine Hyaline Casts 6 Urine Mucus FEW Microscopic Urinalysis Comment CULTURE INDICATED Blood Urea Nitrogen 7 Creatinine 0.73 Random Glucose 101 Total Protein 8.1 Albumin 3.9 Calcium Level 9.2 Magnesium Level 2.1 Alkaline Phosphatase 124 Aspartate Amino Transf (AST/SGOT) 23 Alanine Aminotransferase (ALT/SGPT) 21 Total Bilirubin 0.6 Sodium Level 137 Potassium Level 3.4 Chloride Level 100 Carbon Dioxide Level 22.3 Anion Gap 15 Estimat Glomerular Filtration Rate 82 Lipase 157 Thyroid Stimulating Hormone 3rd Gen 0.899 Salicylates Level LESS THAN 1.7 Urine Opiates Screen NEG Acetaminophen Level LESS THAN 2.0 Urine Barbiturates Screen NEG Urine Amphetamines Screen NEG Urine Benzodiazepines Screen NEG Urine Cocaine Screen NEG Urine Cannabinoids Screen NEG Ethyl Alcohol Level 32 Prothrombin Time 10.7 Prothromb Time International Ratio 1.1 Activated Partial Thromboplast Time 28.4 Date/Time Source Procedure Growth Status 05/14/17 21:00 Urine Random Urine Urine Culture Pending Received Result Diagram: 05/14/17209905/14/172099 Imaging Last Impressions Abdomen/Pelvis CT 05/14/172117 Signed Impressions: Service Date/Time: Sunday, May 14, 2017 22:48 - CONCLUSION: 1. No acute finding is identified within the abdomen or pelvis. There are no imaging findings to indicate acute diverticulitis. 2. There is a 15 mm cyst in the right ovary. If the patient is post menopausal, recommend 6 month follow up imaging to confirm stability. 3. Nonacute findings include small hiatal hernia and 18 mm hypoenhancing area in the uterine fundus likely representing a fibroid. Brooks Valentin MD Chest X-Ray 05/14/172027 Signed Impressions: Service Date/Time: Sunday, May 14, 2017 20:39 - CONCLUSION: Underinflated examination with atelectasis at both lung bases. Otherwise, no acute finding is identified. Brooks Valentin MD Assessment and Plan Assessment and Plan Mild leukocytosis we'll repeat labs tomorrow Urinary tract infection continue on Bactrim DS 1 by mouth twice a day for 7 days Urine drug screen is negative Alcohol level was elevated at 32 Probable COPD continue on DuoNeb's as needed and Mucinex Psychiatric issues will defer to psychiatry Believe currently is under [employer] act Code Status Full code Discussed Condition With RN and patient and psychiatry Siddhartha Conner DO May 15, 2017 10:02
[2017-05-15] MEDS ORDERED: RESP: ALBUTEROL 2.5 MG/IPRATROPIUM 0.5 MG NEB (PRN) NEB (10:15)
[2017-05-15] MEDS: ACETAMINOPHEN 325 MG TAB PO PRN (12:08)
[2017-05-15] MEDS: guaiFENesin E.R. 600 MG TAB PO SCH ×2 (12:09→20:35)
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
[2017-05-15 18:45] VITALS: BP 159/82; PULSE 111; RESP 18; TEMP 98.7; O2SAT 98
[2017-05-15] MEDS: REMOVE OLD NICOTINE PATCH T-DERMAL SCH (20:35)
[2017-05-15] MEDS: SULFAMETHOXAZOLE-TRIMETHOPRIM DS 800-160 MG TAB PO SCH (20:35)
--- NOTE | 2017-05-15 23:00 | EKG ---
Date Performed: 05/14/2017 Time Performed: 20:50:00 PTAGE: 56 years EKG: SINUS TACHYCARDIA INFERIOR MYOCARDIAL INFARCTION MODERATE T-WAVE ABNORMALITY, CONSIDER ANTE RIOR ISCHEMIA ABNORMAL ECG PREVIOUS TRACING : 07/25/2013 22.11 DOCTOR: Paula Arroyo Interpretating Date/Time 05/15/2017 22:53:35
[2017-05-16 05:47] VITALS: BP 168/70; PULSE 108; RESP 17; TEMP 97.9; O2SAT 98
--- NOTE | 2017-05-16 07:57 | PD.PSY.CON ---
Provisional Diagnosis Admission Date May 15, 2017 at 02:12 [place] I. Unspecified psychosis History of Present Illness Service Psychiatry Consult Requested By Psychiatry Reason for Consult Second opinion Primary Care Physician No Primary Care Physician HPI Patient is a 56 y/o woman,, with no children, domiciled with , unemployed, with unknown past psychiatric history, denies previous hospitalizations, diagnoses, suicide attempt or self-injurious behavior, denies any substance use history, with a past medical history of chronic bronchitis, COPD, history of fibroids, ovarian cysts who was brought in under [employer] act after being found in her residence with trash, urine, feces all over the furniture and floor and having reported that she was bleeding from her rectum with uncontrollable bowels and recently refused treatment for pneumonia along with not eating for 2 weeks which patient was brought into the inpatient psychiatry unit for further evaluation and management. Patient was found lying in hospital be calm but guarded during interview and having been noted with some disorganization in regards to circumstances that brought to the hospital. Patient states that prior to her hospitalization she was brought to a friend's residence and was told that she would need an live there by her and did not allow her to go back home. She states that she had been dehydrated and had only allowed her to drink a can of beer and refusing her to be able to drink any water. Patient states that she had not been sleeping as "he will not let me sleep", reports having no appetite decreased energy, denying depressed mood, perceptional disturbances or delusions. When asked about the residence and why she was found with urine and feces and trashed she did not have any explanation for this. Patient states that she does not know why her was bringing her to this place or not allowing her to sleep or eat or drink. Patient reports her name is Rafi Mcdonnell but states that she does not know his telephone number. The patient is a 56-year-old woman, domicile with her , she is originally from [place], unemployed, she doesn't have social assistance, no previous psychiatric history, no previous psychiatric hospitalizations, no previous suicidal attempts, she is not in psychotropics, medical history of COPD , bronchitis, she does report the use of alcohol, denies the use of illegal drugs, who was brought to the hospital on the [place] at due to disorganized self neglecting behavior. Patient was consulted to live for second opinion. On my evaluation today the patient was initially oppositional, resistant and irritable. She was not very happy with my accent, she was visibly paranoid, disorganized, with some periods of lucidity, circumstantial, sometimes tangential, but redirectable. The patient doesn't elaborate a rational reason to be in the hospital. He denies suicidal or homicidal ideation, she denies visual and auditory hallucinations. 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 No agitation, no aggressive behavior, are present during this evaluation. Review of Systems Psychiatric: DENIES: Anxiety, Confusion, Mood changes, Depression, Hallucinations, Agitation, Suicidal Ideation, Homicidal Ideation, Delusions Past Family Social History Coded Allergies: cephalexin (Unverified Allergy, Severe, HIVES, ITCHING, 03/13/17) doxycycline (Unverified Allergy, Severe, "TOXIC" REACTION, 03/13/17) minocycline (Unverified Allergy, Severe, "TOXIC" REACTION, 03/13/17) prednisone (Unverified Allergy, Severe, Rash, 03/13/17) tigecycline (Unverified Allergy, Severe, "TOXIC" REACTION, 03/13/17) Active Scripts Sulfamethoxazole-Trimethoprim (Bactrim DS) 800-160 Mg Tab, 1 TAB PO BID for Infection, #14 TAB 0 Refills Prov:Yoly Lagos MD 05/14/17 Current Medications Medications (Trade) Dose Ordered Sig/Hilary Route Start Time Stop Time Status Last Admin (Atarax) 50 mg Q6H PRN PO 05/15/17 02:45 (Benadryl) 50 mg Q6H PRN PO 05/15/17 02:45 (Benadryl Inj) 50 mg Q6H PRN IM 05/15/17 02:45 (Tylenol) 650 mg Q4H PRN PO 05/15/17 02:45 05/15/17 12:08 (Milk Of Magnesia Liq) 30 ml DAILY PRN PO 05/15/17 02:45 (Mag-Al Plus Susp Liq) 30 ml Q6H PRN PO 05/15/17 02:45 (Habitrol 21 Mg Patch.24 Hr) 1 patch DAILY T-DERMAL 05/15/17 09:00 Miscellaneous Information 1 HS T-DERMAL 2/19/18 21:00 (Mucinex Er) 600 mg BID PO 05/15/17 12:00 05/15/17 12:09 (Duoneb Neb) 1 ampule Q4HR NEB PRN NEB 05/15/17 10:15 (Bactrim Ds 800-160 Mg) 1 tab BID PO 05/15/17 21:00 Patient's Strengths (min. 2) Verbal and communicative Physical Exam Vital Signs Vital Signs Date Time Temp Pulse Resp B/P (MAP) Pulse Ox O2 Delivery O2 Flow Rate FiO2 05/16/17 05:47 97.9 108 17 168/70 (102) 98 05/15/17 02:40 Room Air I/O 05/16/17 05/16/17 05/17/17 08:00 16:00 00:00 Intake Total 0 ml Balance 0 ml Lab Results Date/Time Source Procedure Growth Status 05/14/17 21:00 Urine Random Urine Urine Culture - Preliminary NO GROWTH IN 24 HOURS. Resulted Mental Status Examination Appearance: Disheveled Consciousness: Alert Orientation: Person, Place, Date/Time Motor Activity: Normal gait Speech: Unremarkable Language: Adequate Fund of Knowledge: Inadequate Attention and Concentration: Adequate Memory: Impaired Mood: Irritable Affect: Other (Guarded) Thought Process & Associations: Disorganized Thought Content: Bizarre thinking, Delusional Hallucination Type: None Delusion Type: Bizarre Suicidal Ideation: No Suicidal Plan: No Suicidal Intention: No Homicidal Ideation: No Homicidal Plan: No Homicidal Intention: No Insight: Poor Judgment: Poor Assessment & Plan Problem List: (1) Unspecified psychosis ICD Codes: F29 - Unspecified psychosis not due to a substance or known physiological condition Assessment & Plan: I have seen and examined this patient this morning, reviewed the documentation, I agree and concur with Dr. Dove assessment and plan. Assessment & Plan Estimated LOS: Jm Franz MD May 16, 2017 07:57
--- NOTE | 2017-05-16 08:02 | PD.PSY.CON ---
Provisional Diagnosis Admission Date May 15, 2017 at 02:12 [place] I. Unspecified psychosis History of Present Illness Service Psychiatry Consult Requested By Second opinion Reason for Consult Second opinion Primary Care Physician No Primary Care Physician HPI Patient is a 56 y/o woman,, with no children, domiciled with , unemployed, with unknown past psychiatric history, denies previous hospitalizations, diagnoses, suicide attempt or self-injurious behavior, denies any substance use history, with a past medical history of chronic bronchitis, COPD, history of fibroids, ovarian cysts who was brought in under [employer] act after being found in her residence with trash, urine, feces all over the furniture and floor and having reported that she was bleeding from her rectum with uncontrollable bowels and recently refused treatment for pneumonia along with not eating for 2 weeks which patient was brought into the inpatient psychiatry unit for further evaluation and management. Patient was found lying in hospital be calm but guarded during interview and having been noted with some disorganization in regards to circumstances that brought to the hospital. Patient states that prior to her hospitalization she was brought to a friend's residence and was told that she would need an live there by her and did not allow her to go back home. She states that she had been dehydrated and had only allowed her to drink a can of beer and refusing her to be able to drink any water. Patient states that she had not been sleeping as "he will not let me sleep", reports having no appetite decreased energy, denying depressed mood, perceptional disturbances or delusions. When asked about the residence and why she was found with urine and feces and trashed she did not have any explanation for this. Patient states that she does not know why her was bringing her to this place or not allowing her to sleep or eat or drink. Patient reports her name is Rafi Mcdonnell but states that she does not know his telephone number. The patient is a 56-year-old woman, domicile with her , she is originally from [place], unemployed, she doesn't have social assistance, no previous psychiatric history, no previous psychiatric hospitalizations, no previous suicidal attempts, she is not in psychotropics, medical history of COPD , bronchitis, she does report the use of alcohol, denies the use of illegal drugs, who was brought to the hospital on the [employer] at due to disorganized self neglecting behavior. Patient was consulted to live for second opinion. On my evaluation today the patient was initially oppositional, resistant and irritable. She was not very happy with my accent, she was visibly paranoid, disorganized, with some periods of lucidity, circumstantial, sometimes tangential, but redirectable. The patient doesn't elaborate a rational reason to be in the hospital. He denies suicidal or homicidal ideation, she denies visual and auditory hallucinations. 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 No agitation, no aggressive behavior, are present during this evaluation. Past Family Social History Coded Allergies: cephalexin (Unverified Allergy, Severe, HIVES, ITCHING, 03/13/17) doxycycline (Unverified Allergy, Severe, "TOXIC" REACTION, 03/13/17) minocycline (Unverified Allergy, Severe, "TOXIC" REACTION, 03/13/17) prednisone (Unverified Allergy, Severe, Rash, 03/13/17) tigecycline (Unverified Allergy, Severe, "TOXIC" REACTION, 03/13/17) Active Scripts Sulfamethoxazole-Trimethoprim (Bactrim DS) 800-160 Mg Tab, 1 TAB PO BID for Infection, #14 TAB 0 Refills Prov:Yoly Lagos MD 05/14/17 Current Medications Medications (Trade) Dose Ordered Sig/Hilary Route Start Time Stop Time Status Last Admin (Atarax) 50 mg Q6H PRN PO 05/15/17 02:45 (Benadryl) 50 mg Q6H PRN PO 05/15/17 02:45 (Benadryl Inj) 50 mg Q6H PRN IM 05/15/17 02:45 (Tylenol) 650 mg Q4H PRN PO 05/15/17 02:45 05/15/17 12:08 (Milk Of Magnesia Liq) 30 ml DAILY PRN PO 05/15/17 02:45 (Mag-Al Plus Susp Liq) 30 ml Q6H PRN PO 05/15/17 02:45 (Habitrol 21 Mg Patch.24 Hr) 1 patch DAILY T-DERMAL 05/15/17 09:00 Miscellaneous Information 1 HS T-DERMAL 05/15/17 21:00 (Mucinex Er) 600 mg BID PO 05/15/17 12:00 05/15/17 12:09 (Duoneb Neb) 1 ampule Q4HR NEB PRN NEB 05/15/17 10:15 (Bactrim Ds 800-160 Mg) 1 tab BID PO 05/15/17 21:00 Patient's Strengths (min. 2) Verbal and communicative Physical Exam Vital Signs Vital Signs Date Time Temp Pulse Resp B/P (MAP) Pulse Ox O2 Delivery O2 Flow Rate FiO2 05/16/17 05:47 97.9 108 17 168/70 (102) 98 05/15/17 02:40 Room Air I/O 05/16/17 05/16/17 05/17/17 08:00 16:00 00:00 Intake Total 0 ml Balance 0 ml Lab Results Date/Time Source Procedure Growth Status 05/14/17 21:00 Urine Random Urine Urine Culture - Preliminary NO GROWTH IN 24 HOURS. Resulted Mental Status Examination Appearance: Disheveled Consciousness: Alert Orientation: Person, Place, Date/Time Motor Activity: Normal gait Speech: Unremarkable Language: Adequate Fund of Knowledge: Inadequate Attention and Concentration: Adequate Memory: Impaired Mood: Irritable Affect: Other (Guarded) Thought Process & Associations: Disorganized Thought Content: Bizarre thinking, Delusional Hallucination Type: None Delusion Type: Bizarre Suicidal Ideation: No Suicidal Plan: No Suicidal Intention: No Homicidal Ideation: No Homicidal Plan: No Homicidal Intention: No Insight: Poor Judgment: Poor Assessment & Plan Problem List: (1) Unspecified psychosis ICD Codes: F29 - Unspecified psychosis not due to a substance or known physiological condition Assessment & Plan Estimated LOS: Jm Franz MD May 16, 2017 08:01
[2017-05-16] MEDS: NICOTINE 21 MG/24 HR PATCH T-DERMAL SCH (08:59)
[2017-05-16] MEDS: SULFAMETHOXAZOLE-TRIMETHOPRIM DS 800-160 MG TAB PO SCH (08:59)
[2017-05-16] MEDS: guaiFENesin E.R. 600 MG TAB PO SCH ×2 (08:59→20:55)
--- NOTE | 2017-05-16 09:54 | HHI.PYPN ---
Subjective Remarks Patient seen for follow, chart reviewed. Discussion nursing staff reported the patient had been refusing to eat and refusing medications. Patient was found lying in hospital bed to be superficially cooperative. Patient states that he has been having difficulty eating as she has been having some abdominal discomfort but reports taking her antibiotic regimen as directed. Patient continues to have confusion over the circumstances that brought him to the hospital states that she is unable to locate her and would like to find out where he is continues to report not having any contact information regarding numbers to her father or her . When attempted to have patient recall how patient was staying in a vacant home and why it patient states that because it was closer to [facility]. Patient continues to have illogical responses to her circumstances. Patient continued to have poor insight and judgment into her current disorganization and refusing any psychiatric medications at this time. Patient also mentions that she was trying to sleep phone numbers from her phone because she was trying to do it to keep him from her but was unable to explain why. Patient reports that her address is [address] [place] [address]. Patient also states that her has brain damage. Review of Systems Except as stated in HPI: all other systems reviewed are Neg Mental Status Examination Appearance: Disheveled Consciousness: Alert Orientation: Person, Place, Date/Time Motor Activity: Normal gait Speech: Unremarkable Language: Adequate Fund of Knowledge: Inadequate Attention and Concentration: Adequate Memory: Impaired Mood: Irritable Affect: Other (Guarded) Thought Process & Associations: Disorganized Thought Content: Bizarre thinking, Delusional Hallucination Type: None Delusion Type: Bizarre Suicidal Ideation: No Suicidal Plan: No Suicidal Intention: No Homicidal Ideation: No Homicidal Plan: No Homicidal Intention: No Insight: Poor Judgment: Poor Results Labs Date/Time Source Procedure Growth Status 05/14/17 21:00 Urine Random Urine Urine Culture - Preliminary NO GROWTH IN 24 HOURS. Resulted Vitals/IOs Vital Signs Date Time Temp Pulse Resp B/P (MAP) Pulse Ox O2 Delivery O2 Flow Rate FiO2 05/16/17 05:47 97.9 108 17 168/70 (102) 98 05/15/17 02:40 Room Air Intake and Output 05/16/17 05/16/17 05/17/17 08:00 16:00 00:00 Intake Total 0 ml Balance 0 ml Assessment & Plan Problem List: (1) Unspecified psychosis ICD Codes: F29 - Unspecified psychosis not due to a substance or known physiological condition Assessment & Plan Patient at this time continues to be very poor historian, with disorganized thinking continued to be confused as to her circumstances that brought her into the hospital. Patient continues with poor insight and judgment at this time. Treatment he will continue to try to obtain any collateral contact us of his health care surrogate as patient at this time does not have capacity due to her current symptoms. We will look into the possibility of having someone check in at her home to find . Continue to monitor mood and behavior. Discharge planning in progress. Justification for Cont. Inpt. At risk for further decompensation if at lower level of care Davis Dove MD May 16, 2017 09:54
--- NOTE | 2017-05-16 10:45 | HHI.PR ---
Subjective Remarks had nausea and vomiting - on and off has allergy problems- hay fever no diarrhea, no blood in urine or stool had urinary symptoms for couple of weeks congestion- from allergy related "climate change" Objective Vitals Vital Signs Date Time Temp Pulse Resp B/P (MAP) Pulse Ox O2 Delivery O2 Flow Rate FiO2 05/16/17 05:47 97.9 108 17 168/70 (102) 98 05/15/17 18:45 98.7 111 18 159/82 (107) 98 I/O 05/15/17 05/15/17 05/15/17 05/16/17 05/16/17 05/16/17 07:00 15:00 23:00 07:00 15:00 23:00 Intake Total 240 ml 600 ml 600 ml 360 ml Balance 240 ml 600 ml 600 ml 360 ml Intake Oral 240 ml 600 ml 600 ml 360 ml # Voids 2 3 Result Diagram: 05/14/17209905/14/172099 A/P Assessment and Plan abnormal UA cx negative allergies copd - exposed to second hand smoke hx of kidney infections d/c bactrim will sign off Ray Antoine MD May 16, 2017 10:45
[2017-05-16 17:51] VITALS: BP 124/68; PULSE 102; RESP 18; TEMP 98.2
[2017-05-16] MEDS: REMOVE OLD NICOTINE PATCH T-DERMAL SCH (20:56)
[2017-05-17] MEDS: ACETAMINOPHEN 325 MG TAB PO PRN (03:00)
[2017-05-17 04:28] VITALS: BP 124/72; PULSE 103; RESP 17; TEMP 97.6; O2SAT 95
[2017-05-17] MEDS: NICOTINE 21 MG/24 HR PATCH T-DERMAL SCH (09:00)
[2017-05-17] MEDS: guaiFENesin E.R. 600 MG TAB PO SCH ×2 (09:00→21:00)
--- NOTE | 2017-05-17 12:55 | HHI.PYPN ---
Subjective Remarks Patient seen for follow, chart reviewed. Discussion nursing staff reported the patient has been out of her room more and found in casual clothing. Patient was found sitting in the room noted to be guarded but cooperative. Patient reports that she is feeling "not so good" referring to feeling "uncomfortable displays" but continues to report having some abdominal discomfort which she believes is secondary to antibiotics. Patient reports sleeping well but also reported feeling upset that she does not know her 's. Patient denies any perceptual disturbances or delusions continues to have some confusion as per circumstances that brought her to the hospital. Patient denies having any contact numbers or information to reach family or friends that may provide helpful information. Review of Systems Except as stated in HPI: all other systems reviewed are Neg Mental Status Examination Appearance: Disheveled Consciousness: Alert Orientation: Person, Place, Date/Time Motor Activity: Normal gait Speech: Unremarkable Language: Adequate Fund of Knowledge: Inadequate Attention and Concentration: Adequate Memory: Impaired Mood: Irritable Affect: Other (Guarded) Thought Process & Associations: Disorganized Thought Content: Bizarre thinking, Delusional Hallucination Type: None Delusion Type: Bizarre Suicidal Ideation: No Suicidal Plan: No Suicidal Intention: No Homicidal Ideation: No Homicidal Plan: No Homicidal Intention: No Insight: Poor Judgment: Poor Results Labs Date/Time Source Procedure Growth Status 05/14/17 21:00 Urine Random Urine Urine Culture - Final 50-100,000 CFU/ML MIXED GRAM POSITIVE... Complete Vitals/IOs Vital Signs Date Time Temp Pulse Resp B/P (MAP) Pulse Ox O2 Delivery O2 Flow Rate FiO2 05/17/17 04:28 97.6 103 17 124/72 (89) 95 05/15/17 02:40 Room Air Intake and Output 05/17/17 05/17/17 05/18/17 08:00 16:00 00:00 Intake Total 360 ml Balance 360 ml Assessment & Plan Problem List: (1) Unspecified psychosis ICD Codes: F29 - Unspecified psychosis not due to a substance or known physiological condition Assessment & Plan Patient at this time continue to be noted to be oddly related during interview, continues to have confusion as per the circumstances of brought to the hospital which may be related to underlying psychosis. Patient continues to have limited insight and judgment. She is compliant with medical treatment. Continue to monitor mood and behavior. Patient reported to mental health court tomorrow and if retainable will request healthcare surrogate and guardian advocate as patient has been has been is noted to be found or reached. She is planning in progress Justification for Cont. Inpt. At risk of further decompensation at lower level of care. Discharge Planning To be determined Davis Dove MD May 17, 2017 12:55
[2017-05-17 18:50] VITALS: BP 150/66; PULSE 118; RESP 20; TEMP 98.5; O2SAT 94
[2017-05-17] MEDS: REMOVE OLD NICOTINE PATCH T-DERMAL SCH (21:00)
[2017-05-18 06:00] VITALS: BP 137/67; PULSE 111; RESP 17; TEMP 97.8; O2SAT 96
[2017-05-18] MEDS: guaiFENesin E.R. 600 MG TAB PO SCH (08:16)
[2017-05-18] MEDS: NICOTINE 21 MG/24 HR PATCH T-DERMAL SCH (08:16)
[2017-05-18 08:28] LABS: AUTOMATED NEUTROPHIL # 6.3 TH/MM3 (1.8-7.7); BASOPHIL # 0.1 TH/MM3 (0-0.2); BASOPHIL % 0.7 % (0.0-2.0); EOSINOPHIL # 0.1 TH/MM3 (0-0.4); EOSINOPHIL % 1.2 % (0.0-4.0); HEMATOCRIT 45.5 % (35.0-46.0); LYMPH % 22.8 % (9.0-44.0); LYMPHOCYTE # 2.1 TH/MM3 (1.0-4.8); MEAN CORPUSCULAR HEMOGLOBIN 27.4 PG (27.0-34.0); MEAN PLATELET VOLUME 8.1 FL (7.0-11.0); MONO % 7.1 % (0.0-8.0); MONOCYTE # 0.7 TH/MM3 (0-0.9); NEUT % 68.2 % (16.0-70.0); PLATELET COUNT 324 TH/MM3 (150-450); RED BLOOD COUNT 5.48 MIL/MM3 (4.00-5.30); RED CELL DISTRIBUTION WIDTH 14.5 % (11.6-17.2); WHITE BLOOD COUNT 9.2 TH/MM3 (4.0-11.0)
[2017-05-18 08:46] LABS: ALT (GPT) 17 U/L (10-53); AST (GOT) 12 U/L (15-37); BICARBONATE 25.7 MEQ/L (21.0-32.0); BLOOD UREA NITROGEN 8 MG/DL (7-18); CALCIUM 9.1 MG/DL (8.5-10.1); CHLORIDE 101 MEQ/L (98-107); CHOLESTEROL 279 MG/DL (120-200); CREATININE 0.67 MG/DL (0.50-1.00); GLOMERULAR FILTRATION RATE 91 ML/MIN (>89); GLUCOSE,RANDOM 134 MG/DL (74-106); MAGNESIUM 2.1 MG/DL (1.5-2.5); SODIUM (NA) 136 MEQ/L (136-145)
[2017-05-18 08:54] LABS: ALKALINE PHOSPHATASE 120 U/L (45-117); CHOLESTEROL/ HDL RATIO 4.35 RATIO; FREE T4 1.36 NG/DL (0.76-1.46); LDL CHOLESTEROL 194 MG/DL (0-99); TOTAL BILIRUBIN ADULT 0.5 MG/DL (0.2-1.0); TOTAL PROTEIN 8.2 GM/DL (6.4-8.2); TRIGLYCERIDES 107 MG/DL (42-150)
--- NOTE | 2017-05-18 09:51 | HHI.DS ---
Psychiatry Discharge Summary Inpatient Psychiatric care?: Yes Advance Directive: No Reason Not Provided: declined Mental Health AdvanceDirective: No Health Care Proxy: No Admission Admission Date May 15, 2017 at 02:12 Admission Diagnosis: (1) Unspecified psychosis ICD Code: F29 - Unspecified psychosis not due to a substance or known physiological condition Brief History Patient is a 56 y/o woman,, with no children, domiciled with , unemployed, with unknown past psychiatric history, denies previous hospitalizations, diagnoses, suicide attempt or self-injurious behavior, denies any substance use history, with a past medical history of chronic bronchitis, COPD, history of fibroids, ovarian cysts who was brought in under [place] act after being found in her residence with trash, urine, feces all over the furniture and floor and having reported that she was bleeding from her rectum with uncontrollable bowels and recently refused treatment for pneumonia along with not eating for 2 weeks which patient was brought into the inpatient psychiatry unit for further evaluation and management. Patient was found lying in hospital be calm but guarded during interview and having been noted with some disorganization in regards to circumstances that brought to the hospital. Patient states that prior to her hospitalization she was brought to a friend's residence and was told that she would need an live there by her and did not allow her to go back home. She states that she had been dehydrated and had only allowed her to drink a can of beer and refusing her to be able to drink any water. Patient states that she had not been sleeping as "he will not let me sleep", reports having no appetite decreased energy, denying depressed mood, perceptional disturbances or delusions. When asked about the residence and why she was found with urine and feces and trashed she did not have any explanation for this. Patient states that she does not know why her was bringing her to this place or not allowing her to sleep or eat or drink. Patient reports her name is Rafi Mcdonnell but states that she does not know his telephone number. The patient is a 56-year-old woman, domicile with her , she is originally from [place], unemployed, she doesn't have social assistance, no previous psychiatric history, no previous psychiatric hospitalizations, no previous suicidal attempts, she is not in psychotropics, medical history of COPD , bronchitis, she does report the use of alcohol, denies the use of illegal drugs, who was brought to the hospital on the [place] at due to disorganized self neglecting behavior. Patient was consulted to live for second opinion. On my evaluation today the patient was initially oppositional, resistant and irritable. She was not very happy with my accent, she was visibly paranoid, disorganized, with some periods of lucidity, circumstantial, sometimes tangential, but redirectable. The patient doesn't elaborate a rational reason to be in the hospital. He denies suicidal or homicidal ideation, she denies visual and auditory hallucinations. 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 No agitation, no aggressive behavior, are present during this evaluation. Tobacco Use In Past 30 Days: No Tobacco Past 30 Days Alcohol Use: Never Hospital Course Patient is a 56 y/o woman,, with no children, domiciled with , unemployed, with unknown past psychiatric history, denies previous hospitalizations, diagnoses, suicide attempt or self-injurious behavior, denies any substance use history, with a past medical history of chronic bronchitis, COPD, history of fibroids, ovarian cysts who was brought in under [place] act after being found in her residence with trash, urine, feces all over the furniture and floor and having reported that she was bleeding from her rectum with uncontrollable bowels and recently refused treatment for pneumonia along with not eating for 2 weeks which patient was brought into the inpatient psychiatry unit for further evaluation and management. Patient was continued to be monitored on the unit and noted to have continued confusion to the circumstances that brought her into the hospital. Treatment he was unable to locate any relative or friend or collateral contact to obtain more history from the patient this patient has been a poor historian. There were no psychotropic medications started in this patient refused treatment as well as not having healthcare surrogate at time of admission. The patient continued to be somewhat withdrawn, flat affect, and some thought delay. The patient presented to mental health court for petition for involuntary hospitalization he was discharged to the Court and therefore will be discharged from psychiatric services AGAINST MEDICAL ADVICE and transported home with outpatient follow-up. Results Blood Pressure 137 / 67 Vital Signs Date Time Temp Pulse Resp B/P (MAP) Pulse Ox O2 Delivery O2 Flow Rate FiO2 05/18/17 06:00 97.8 111 17 137/67 (90) 96 05/15/17 02:40 Room Air Laboratory Tests Test 05/18/17 07:10 05/18/17 07:40 Random Glucose 134 MG/DL (74-106) Alkaline Phosphatase 120 U/L (45-117) Aspartate Amino Transf (AST/SGOT) 12 U/L (15-37) Potassium Level 3.1 MEQ/L (3.5-5.1) Cholesterol Level 279 MG/DL (120-200) LDL Cholesterol 194 MG/DL (0-99) HDL Cholesterol 64.0 MG/DL (40.0-60.0) Red Blood Count 5.48 MIL/MM3 (4.00-5.30) Laboratory Results Test 05/18/17 07:10 Cholesterol Level 279 MG/DL (120-200) HDL Cholesterol 64.0 MG/DL (40.0-60.0) LDL Cholesterol 194 MG/DL (0-99) Triglycerides Level 107 MG/DL (42-150) Summary of Procedures None Imaging Last Impressions Abdomen/Pelvis CT 05/14/172117 Signed Impressions: Service Date/Time: Sunday, May 14, 2017 22:48 - CONCLUSION: 1. No acute finding is identified within the abdomen or pelvis. There are no imaging findings to indicate acute diverticulitis. 2. There is a 15 mm cyst in the right ovary. If the patient is post menopausal, recommend 6 month follow up imaging to confirm stability. 3. Nonacute findings include small hiatal hernia and 18 mm hypoenhancing area in the uterine fundus likely representing a fibroid. Brooks Valentin MD Chest X-Ray 05/14/172027 Signed Impressions: Service Date/Time: Sunday, May 14, 2017 20:39 - CONCLUSION: Underinflated examination with atelectasis at both lung bases. Otherwise, no acute finding is identified. Brooks Valentin MD Pending results at discharge: No Medications # of Antipsychotic meds at D/C: 0 Approp Antipsych med options 1 - Minimum of three failed multiple trials of monotherapy. 2 - Documented plan to taper to monotherapy due to previous use of multiple meds OR cross-taper in progress at D/C. 3 - Documentation of augmentation of Clozapine. 4 - Justification other than those listed in allowable values 1-3, document here : Discharge Discharge Date: May 18, 2017 Discharge Diagnosis: (1) Unspecified psychosis ICD Code: F29 - Unspecified psychosis not due to a substance or known physiological condition Pt Condition on Discharge: Stable Discharge Disposition: Discharge Home Discharge Instructions Diet Instructions: Heart Healthy Diet Activities you can perform: Regular-No Restrictions Discharge Time > 30 minutes Mental Status Examination Appearance: Disheveled Consciousness: Alert Orientation: Person, Place, Date/Time Motor Activity: Normal gait Speech: Unremarkable Language: Adequate Fund of Knowledge: Inadequate Attention and Concentration: Adequate Memory: Impaired Mood: Irritable Affect: Other (Guarded) Thought Process & Associations: Disorganized, Other ([place]) Thought Content: Bizarre thinking Hallucination Type: None Delusion Type: Bizarre Suicidal Ideation: No Suicidal Plan: No Suicidal Intention: No Homicidal Ideation: No Homicidal Plan: No Homicidal Intention: No Insight: Poor Judgment: Poor Discharge/Advance Care Plan Health Problems: (1) Unspecified psychosis Goals to promote your health * To prevent worsening of your condition and complications * To maintain your health at the optimal level Directions to meet your goals Take your medications as prescribed Follow your dietary instruction Follow activity as directed Keep your appointments as scheduled Take your immunizations and boosters as scheduled If your symptoms worsen call your PCP, if no PCP go to Urgent Care Center or Emergency Room For 17/10 questions related to your inpatient stay or results of tests pending at discharge, please contact Dr. Davis Dove at Smoking is Dangerous to Your Health. Avoid second hand smoking Davis Dove MD May 18, 2017 09:51
[2017-05-18 16:48] LABS: HEMOGLOBIN A1C 5.9 % (4.3-6.0)
== END 2017-05-18 12:15 | disposition home or self-care (01) | DRG 885 ==
LOC: NEPC 19:03 → NEDA 05-15 02:12 → H4EA 05-15 03:07
PROVIDERS: ADMIT Student in an Organized Health Care Education/Training Program; ATTEND Student in an Organized Health Care Education/Training Program
DX: F23 Brief psychotic disorder (principal); N30.00 Acute cystitis without hematuria; J98.11 Atelectasis; K21.9 Gastro-esophageal reflux disease without esophagitis; N83.209 Unspecified ovarian cyst, unspecified side; D25.9 Leiomyoma of uterus, unspecified; J44.9 Chronic obstructive pulmonary disease, unspecified; K59.00 Constipation, unspecified; R11.2 Nausea with vomiting, unspecified; R10.30 Lower abdominal pain, unspecified; J30.2 Other seasonal allergic rhinitis; Z81.8 Family history of other mental and behavioral disorders
CPT/HCPCS: 71045; 74177; 80053; 80061; 80307; 81001; 83036; 83690; 83735; 84100; 84439; 84443; 85025; 85610; 85730; 87086; 93005; 96360; J7030; Q9967